=== PATIENT | female | born 1950 | race Caucasian/White ===

== ENCOUNTER → 2017-10-02 08:45 | Outpatient (CLI) | payer MEDICARE, OTHER | END | disposition home or self-care (01) | LOC: D.CT 08:45 | DX: R10.9 Unspecified abdominal pain (principal) ==

== ENCOUNTER → 2017-10-19 13:26 | Outpatient (CLI) | payer MEDICARE, OTHER | END | disposition home or self-care (01) | LOC: D.US 13:26 | DX: R10.9 Unspecified abdominal pain (principal) ==

== ENCOUNTER → 2018-03-10 16:50 | Outpatient (CLI) | payer MEDICARE, OTHER ==
[2018-03-10 20:06] LABS: ANION GAP 13.9 mmol/L (8-16); CREATININE - SERUM 1.5 mg/dL (0.6-1.3); MAGNESIUM - SERUM 1.9 mg/dL (1.8-2.4); POTASSIUM - SERUM 4.9 mmol/L (3.5-5.1)
== END | disposition home or self-care (01) ==
LOC: D.LABREF 16:50
PROVIDERS: Internal Medicine Interventional Cardiology
DX: I10 Essential (primary) hypertension (principal)